=== PATIENT | female | born 1935 | race Caucasian/White ===

== ENCOUNTER → 2017-02-14 21:27 | Outpatient (CLI) | payer MEDICARE ==
[2014-11-20 13:39] VITALS: BMI 39.5
[~2017-02-14 21:27] MED LIST: BENADRYL25 MG PO; FLUTICASONE PRO16 GM NASAL; HCTZ25 MG PO; LEVOXYL50 MCG PO; LISINOPRIL2.5 MG PO; OSMOPREP TABLE32 TAB PO; PEPCID20 MG PO; PRAVACHOL40 MG PO
== END | disposition home or self-care (01) ==
LOC: D.LABREF 21:27
DX: L03.90 Cellulitis, unspecified (principal); L02.91 Cutaneous abscess, unspecified

== ENCOUNTER 2017-02-21 18:33 | Outpatient (CLI) | payer MEDICARE ==
[~2017-02-21] VITALS: Ht 152.4 cm; Wt 109.8 kg
[2017-02-21] MEDS ORDERED: BUMEX 1 MG TAB1 MG PO (19:50)
[2017-02-21] MEDS ORDERED: GABAPENTIN100 MG PO (19:51)
[2017-02-21 20:00] VITALS: BP 135/31
--- NOTE | 2017-02-21 20:04 | NUR ---
RECIEEVED TO ROOM 2235 FROM OUTPATIENT.VIA [facility]. CC."HERE FOR BLOOD TRANSFUSION".ALERT ORIENTED X 3. IV INFUSINING TO RIGHT HAND WITHOUT REDNESS OR EDEMA NOTED. ORIENTED TO ROOM. CL IN REACH
--- NOTE | 2017-02-21 21:40 | NUR ---
1 ST UNIT PRBC STARTED. VS STABLE.WILL OBSERVE. CL IN REACH
--- NOTE | 2017-02-21 23:28 | NUR ---
RN NOTE: PT SITTING UP IN HIGH OLIVER'S POSITION WATCHING TV. PRBC' INFUSING IN RIGHT HAND. VITALS STABLE AND PT IS AFEBRILE AT THIS ASSESSMENT. WILL CONTINUE TO MONITOR FOR NEEDS. CALL LIGHT WITHIN REACH.
[2017-02-22] VITALS: BP 115/54
--- NOTE | 2017-02-22 00:14 | NUR ---
FIRST UNIT PRBC COMPLETED. TOLERATED WELL WITH NO REACTIONS NOTED.
--- NOTE | 2017-02-22 00:43 | NUR ---
2ND UNIT PRBC STARTED. NO COMPLINTS
[2017-02-22 02:13] VITALS: BP 135/31; Ht 152.4 cm; Wt 109.8 kg
--- NOTE | 2017-02-22 03:05 | NUR ---
2ND UNIT PRBC COMPLETED.TOLERATED WELL. NO COMPLAINTS VOICED. VS 148/65 P 100 R 20 T 98.2
--- NOTE | 2017-02-22 03:27 | NUR ---
NO S/S REACTIONS NOTED.NO COMPLAINTS VOICED. PT DISCHARGED HOME WITH PERSONAL BELONGINGS PER ORDERS.
== END 2017-02-22 03:27 | disposition home or self-care (01) ==
LOC: OBSVTIME → D.MS 18:33 → UNDOADMOB 18:33 → D.OPS 18:33 → D.MS 18:33 → D.OPS 02-22 03:27 → D.MS 02-22 03:27 → EDSTATUS 02-22 14:25
DX: D64.9 Anemia, unspecified (principal)

== ENCOUNTER 2017-03-29 11:33 | Outpatient (CLI) | payer MEDICARE ==
[~2017-03-29] VITALS: Ht 152.4 cm; Wt 109.1 kg
[~2017-03-29 11:33] MED LIST changes: +BUMEX 1 MG TAB1 MG PO; +GABAPENTIN100 MG PO
[2017-03-29 13:01] VITALS: Ht 152.4 cm; Wt 109.1 kg
--- NOTE | 2017-03-29 13:11 | NUR ---
1225 CALLED LAB TO DO T AND C FOR BLOOD TRANSFUSION.
--- NOTE | 2017-03-29 13:12 | NUR ---
1235 BLOOD CONSENT OBTAINED. WAITING FOR LAB TO DO BLOOD DRAW CALLED AGAIN, EXPLAINED S/S OF BLOOD REACTIONS NOTED.RESP EVEN AND NONLABORED. RT HAND IV 2O GAUGE GOOD BLOOD RETURN KNOT NOTED BUT PATENT NO REDNESS OR SWELLING. N/S INFUSING WITHOUT DIFFICULTY NO REDNESS OR SWELLING.
--- NOTE | 2017-03-29 15:11 | NUR ---
1430 BLOOD CHECKED BY 2 R.N.S. BLOOD STARTED NO S/S OF BLOOD REACTIONS NOTED.
--- NOTE | 2017-03-29 15:11 | NUR ---
1445 BLOOD INFUSING WITHOT S/S OF BLOOD REACTIONS NOTED.
--- NOTE | 2017-03-29 16:36 | NUR ---
1530 UP IN THE CHAIR. IV SITE RT HAND NO REDNESS OR SWELLING. BLOOD INFUSING WITHOUT S/S OF ADVERSE EFFECTS NOTED.
--- NOTE | 2017-03-29 16:36 | NUR ---
1630 1ST UNIT OF BLOOD COMPLETED. NO S/S OF BLOOD REACTIONS NOTED.
--- NOTE | 2017-03-29 16:37 | NUR ---
1635 2ND UNIT OF BLOOD CHECKED BY 2 RNS. NEW BLOOD TUBING EFRA.
--- NOTE | 2017-03-29 16:37 | NUR ---
1637 2ND UNIT OF PRBCS HUNG VIA RT HAND NO REDNESS OR SWELLING.
--- NOTE | 2017-03-29 18:02 | NUR ---
1651 TOLERATING BLOOD WITHOUT S/S OF BLOOD REACTIONS. IV TO RT HAND NO REDNESS OR SWELLING. HAS ALLERGIES BUT NO S/S OF BLOOD REACTIONS NOTED.
--- NOTE | 2017-03-29 18:07 | NUR ---
1730 SUPPER TRAY SERVED.
--- NOTE | 2017-03-29 18:11 | NUR ---
1800 TOLERATING BLOOD NO S/S OF BLOOD REACTIONS NOTED.
--- NOTE | 2017-03-29 19:58 | NUR ---
1838 V/S TAKEN IV DCD CATHETER INTACT. DISCHARGE INSTRUCTIONS GIVEN NO S/S OF ADVERSE EFFECTS OF BLOOD REACTIONS NOTED. TO HOME WITH FAMILY VIA W/C.
== END 2017-03-29 19:38 | disposition home or self-care (01) ==
LOC: D.OPS 11:33
DX: D64.9 Anemia, unspecified (principal)

== ENCOUNTER 2017-04-12 20:05 | Emergency (ER) | payer MEDICARE ==
[2017-03-29 13:01] VITALS: BMI 46.9
[2017-04-12 21:46] LABS: BASOPHILS 0.3 % (0-2); EOSINOPHILS 2.7 % (0-7); HEMATOCRIT 33.8 % (36.0-48.0); HEMOGLOBIN 10.1 g/dL (12-16); IMMATURE GRANULOCYTES 1.2 % (0-5); LYMPHOCYTES 22.8 % (15-50); MCH 27.6 pg (26.0-34.0); MCHC 29.9 g/dL (31.0-37.0); MCV 92.3 fL (80.0-100.0); MEAN PLATELET VOLUME 9.9 fL (7.4-10.4); MONOCYTES 7.8 % (2-11); NEUTROPHILS 65.2 % (40-80); PLATELET COUNT 253 10x3/uL (130-400); RBC 3.66 10x6/uL (4.00-5.40); RDW 15.5 % (11.5-14.5); WBC 10.7 10x3/uL (4.8-10.8)
[2017-04-12 22:12] LABS: ALBUMIN 3.3 g/dL (3.4-5.0); ANION GAP 12.1 mmol/L (8-16); BILIRUBIN - TOTAL 0.4 mg/dL (0.2-1.3); CALCIUM 8.9 mg/dL (8.5-10.1); CARBON DIOXIDE 27.2 mmol/L (21.0-32.0); CREATININE - SERUM 0.9 mg/dL (0.6-1.3); POTASSIUM - SERUM 4.3 mmol/L (3.5-5.1); PROTEIN - SERUM 6.6 g/dL (6.4-8.2)
[2017-04-12 22:29] LABS: APPEARANCE CLEAR (CLEAR); BILIRUBIN NEGATIVE (NEGATIVE); COLOR YELLOW (YELLOW); GLUCOSE NEGATIVE (NEGATIVE); KETONE NEGATIVE (NEGATIVE); LEUKOCYTE ESTERASE NEGATIVE (NEGATIVE); NITRITE NEGATIVE (NEGATIVE); PROTEIN NEGATIVE (NEGATIVE); UROBILINOGEN NORMAL (NORMAL)
== END 2017-04-12 23:54 | disposition home or self-care (01) ==
LOC: D.ER 20:05
PROVIDERS: Nurse Practitioner Family
DX: I50.9 Heart failure, unspecified (principal); R06.02 Shortness of breath; K21.9 Gastro-esophageal reflux disease without esophagitis; R05 Cough; R09.89 Other specified symptoms and signs involving the circulatory and respiratory systems

== ENCOUNTER → 2017-05-21 14:05 | Outpatient (CLI) | payer MEDICARE ==
[2017-03-29 13:01] VITALS: BMI 46.9
[2017-05-21 16:10] LABS: ANION GAP 10.1 mmol/L (8-16); CALCIUM 9.7 mg/dL (8.5-10.1); CARBON DIOXIDE 30.8 mmol/L (21.0-32.0); POTASSIUM - SERUM 3.9 mmol/L (3.5-5.1)
== END | disposition home or self-care (01) ==
LOC: D.LABREF 14:05
PROVIDERS: Family Medicine
DX: I11.0 Hypertensive heart disease with heart failure (principal); I50.9 Heart failure, unspecified; I87.393 Chronic venous hypertension (idiopathic) with other complications of bilateral lower extremity